=== PATIENT | female | born 2000 | race American Indian/Alaskan Native ===

== ENCOUNTER 2022-07-21 21:13 | Emergency (ER) | payer OTHER, MEDICAID, SELFPAY ==
[2022-07-21 21:31] VITALS: BP 144/101; PULSE 77; RESP 15; TEMP 36.2; O2SAT 100; BMI 33.0
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
[2022-07-21] MEDS: KETOROLAC 30 MG/ML VIAL IM (23:41)
[2022-07-21] MEDS: diazePAM 5 MG TABLET PO (23:41)
[2022-07-21 23:44] VITALS: BP 121/81; PULSE 79; RESP 16; O2SAT 100
== END 2022-07-21 23:49 | disposition home or self-care (01) ==
PROVIDERS: Emergency Provider Emergency Medicine
DX: S93.402A Sprain of unspecified ligament of left ankle, initial encounter (principal); S16.1XXA Strain of muscle, fascia and tendon at neck level, initial encounter; F10.129 Alcohol abuse with intoxication, unspecified; R55 Syncope and collapse; V89.2XXA Person injured in unspecified motor-vehicle accident, traffic, initial encounter
CPT/HCPCS: 96372; 99283; J1885

== ENCOUNTER 2023-07-27 13:35 | Emergency (ER) | payer OTHER, MEDICAID, SELFPAY ==
[2023-07-27 13:51] VITALS: BP 123/65; PULSE 111; RESP 18; TEMP 36.3; O2SAT 95; BMI 44.8
--- NOTE | 2023-07-27 13:54 | DI.RAD.S_ITS ---
PROCEDURE: XR ANKLE RT MIN 3V INDICATIONS: rolled ankle, pain TECHNIQUE: 3 views of the ankle were acquired. COMPARISON: None. FINDINGS: Bones: No fractures or dislocations. Ankle mortise is normally aligned. No suspicious bony lesions. Soft tissues: No tibiotalar joint effusion. Achilles tendon appears normal. IMPRESSION: Soft tissue swelling without fracture or foreign body Approved by: Jc Ko M.D. on 07/27/2023 at 13:26
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
--- NOTE | 2023-07-27 14:23 | DI.RAD.S_ITS ---
PROCEDURE: XR FOOT RT MIN 3V INDICATIONS: R foot pain TECHNIQUE: 3 views of the foot were acquired. COMPARISON: None. FINDINGS: Bones: Nondisplaced fracture base of the 5th metatarsal noted. Normal bone mineralization. Soft tissues: No tibiotalar joint effusion. Achilles tendon appears normal. IMPRESSION: Nondisplaced base of the 5th metatarsal fracture Approved by: Jc Ko M.D. on 07/27/2023 at 14:36
[2023-07-27 15:51] VITALS: BP 114/71; PULSE 89; RESP 18; O2SAT 98
== END 2023-07-27 16:15 | disposition home or self-care (01) ==
PROVIDERS: Emergency Provider Physician Assistant Medical
DX: S92.351A Displaced fracture of fifth metatarsal bone, right foot, initial encounter for closed fracture (principal); X50.1XXA Overexertion from prolonged static or awkward postures, initial encounter
CPT/HCPCS: 73610; 73630; 99283